=== PATIENT | female | born 1955 | race Caucasian/White ===

== ENCOUNTER 2024-06-13 10:58 | Emergency (ER) | payer MEDICARE, OTHER ==
[~2024-06-13] VITALS: Ht 170.2 cm; Wt 116.0 kg
[2024-06-13] MEDS ORDERED: prednisone 10mg tablet PO SCH (11:40)
[2024-06-13] MEDS ORDERED: valacyclovir 500mg tablet PO SCH (11:40)
[2024-06-13 11:41] VITALS: TEMP 98.1
[2024-06-13 11:50] LABS: BASOPHILS % (AUTO) 0.6 % (0-1); EOSINOPHILS % (AUTO) 0.6 % (0-6); HEMATOCRIT 42.4 % (35.0-45.0); HEMOGLOBIN 14.9 g/dl (12.0-16.0); LYMPHOCYTES # (AUTO) 1.1 X10'3 (1.1-4.8); LYMPHOCYTES % (AUTO) 17.2 % (21-51); MEAN CORPUSCULAR HEMOGLOBIN 30.6 PG (27.0-31.0); MEAN CORPUSCULAR HGB CONC 35.3 g/dL (33.0-36.5); MEAN CORPUSCULAR VOLUME 86.7 FL (78-98); MEAN PLATELET VOLUME 8.6 FL (7.4-10.4); MONOCYTES # (AUTO) 0.4 X10'3 (0-0.9); MONOCYTES % (AUTO) 7.1 % (2-12); NEUTROPHILS # (AUTO) 4.7 X10'3 (1.8-7.7); NEUTROPHILS % (AUTO) 74.5 % (42-75); PLATELET COUNT 231 X10'3 (140-440); RED BLOOD COUNT 4.89 X10'6 (4.20-5.60); RED CELL DISTRIBUTION WIDTH 13.5 % (11.5-14.5); WHITE BLOOD COUNT 6.3 X10'3 (4.5-11.0)
[2024-06-13 12:06] LABS: ALBUMIN 3.3 G/DL (3.4-5.0); ANION GAP 12 (8-16); BLOOD UREA NITROGEN 11 MG/DL (7-18); BUN/CREATININE RATIO 10.2 (10.0-20.0); CALCIUM 9.1 MG/DL (8.5-10.1); CHLORIDE 101 MMOL/L (99-107); CREATININE 1.08 MG/DL (0.40-0.90); GLUCOSE 140 MG/DL (70-104); SODIUM 140 MMOL/L (135-145); TOTAL CARBON DIOXIDE 27.5 MMOL/L (24-32); eCRCL 48 ML/MIN; eGFR 50 ML/MIN
[2024-06-13 12:08] LABS: POTASSIUM 2.8 MMOL/L (3.5-5.1)
[2024-06-13 12:10] LABS: APTT 25 SECONDS (22-32); PROTHROMBIN TIME 10.6 SECONDS (9.0-12.0)
[2024-06-13] MEDS: prednisone 10mg tablet PO ONE (12:10)
[2024-06-13 12:13] LABS: BILIRUBIN,URINE NEGATIVE (Neg); CLARITY,URINE CLOUDY (Clear); COLOR,URINE YELLOW (Yellow); GLUCOSE, URINE NEGATIVE (Neg); KETONES,URINE NEGATIVE (Neg); LEUKOCYTE ESTERASE ,URINE MODERATE (Neg); NITRITES, URINE NEGATIVE (Neg); OCCULT BLOOD,URINE NEGATIVE (Neg); PROTEIN,URINE TRACE mg/dl (Neg); UROBILINOGEN,URINE 0.2 E.U/dL (0.2-1.0)
[2024-06-13 12:15] LABS: UA COLLECTION TYPE NON-SPECIFIED
[2024-06-13] MEDS: valacyclovir 500mg tablet PO ONE (12:16)
[2024-06-13] MEDS ORDERED: VALA100031 PO (12:16)
[2024-06-13] MEDS ORDERED: PRED20TA PO (12:16)
[2024-06-13 12:21] LABS: BACTERIA,URINE 4+ /HPF (Neg); MUCUS STRANDS MANY /LPF (Neg); RBC,URINE NONE SEEN /HPF (0-2); SQUAMOUS EPITHELIAL CELL,UR MANY /LPF (FEW); WBC,URINE 30-50 /HPF (0-4)
[2024-06-13 13:01] VITALS: BP 135/92; PULSE 103; RESP 16; O2SAT 93
== END 2024-06-13 13:19 | disposition home or self-care (01) ==
LOC: ER 10:59
DX: G51.0 Bell's palsy (principal); Z88.0 Allergy status to penicillin
CPT/HCPCS: 36415; 70450; 71045; 80048; 81001; 82948; 85025; 85610; 85730; 86885; 86900; 86901; 93005; 99285; J7512

== ENCOUNTER 2025-06-23 14:12 | Outpatient (CLI) | payer OTHER ==
[~2025-06-23 14:12] MED LIST: VALA100031 PO
--- NOTE | 2025-06-23 19:02 | RADIOLOGY REPORT ---
CLINICAL HISTORY: STATUS POST FALL; RIGHT KNEE PAIN TECHNIQUE: 4 views of the right knee were obtained. WID: COMPARISON: None FINDINGS: Normal mineralization and alignment. Moderate medial compartment joint space narrowing. There is tricompartment osteophyte formation. There is no acute fracture. Superior patellar enthesophyte. No joint effusion. Overlying soft tissues are intact. IMPRESSION: 1. No acute fracture or traumatic malalignment. 2. 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
== END 2025-06-23 23:59 | disposition home or self-care (01) ==
LOC: RAD 14:12
PROVIDERS: ATTEND Nurse Practitioner Family
DX: M17.11 Unilateral primary osteoarthritis, right knee (principal); M25.561 Pain in right knee; Z91.81 History of falling
CPT/HCPCS: 73564